=== PATIENT | male | born 1955 | race Caucasian/White ===

== ENCOUNTER 2021-10-28 10:13 | Outpatient (CLI) | payer BC | END 2021-10-28 10:14 | disposition home or self-care (01) | LOC: CSHRAD 10:13 | PROVIDERS: ATTEND Physician Assistant | DX: R13.10 Dysphagia, unspecified (principal); K22.5 Diverticulum of esophagus, acquired | CPT/HCPCS: 74220 ==

== ENCOUNTER 2022-01-18 11:38 | Outpatient (CLI) | payer BC, MEDICARE ==
[2022-01-18 13:11] LABS: Anion Gap 13 mmol/L (10-20); BUN (Urea Nitrogen) 19 mg/dL (8.4-25.7); Calc. Creatinine Clearance 0 mL/min (70-130); Calcium 9.3 mg/dL (7.8-10.44); Carbon Dioxide 28 mmol/L (23-31); Chloride 107 mmol/L (98-107); Estimated GFR 94; Glucose 93 mg/dL (80-115); Potassium 4.2 mmol/L (3.5-5.1); Sodium 144 mmol/L (136-145)
== END 2022-01-18 11:39 | disposition home or self-care (01) ==
LOC: CSHLAB 11:38
PROVIDERS: ATTEND Otolaryngology Plastic Surgery within the Head & Neck
DX: Z01.818 Encounter for other preprocedural examination (principal); Z20.822 Contact with and (suspected) exposure to COVID-19
CPT/HCPCS: 80048; 85014; 85018; 87811; 93005; 93010

== ENCOUNTER 2022-01-23 05:27 | Inpatient (IN) | payer BC, MEDICARE ==
[2022-01-23] MEDS ORDERED: EPINEPHrine 1 MG/ML AMP ONE ×2 (06:37→06:38)
[2022-01-23] MEDS ORDERED: Lidocaine 1% w/Epinephrine 1:100K 20 ML VIAL ONE (06:38)
[2022-01-23] MEDS ORDERED: Ondansetron PF 4 MG/2 ML Vial ONE (06:40)
[2022-01-23] MEDS ORDERED: Dexamethasone 20 MG/5 ML VIAL ONE (06:40)
[2022-01-23] MEDS ORDERED: Fentanyl 250 MCG/5 ML VIAL ONE (06:40)
[2022-01-23] MEDS ORDERED: Lidocaine 1% PF 5 ML VIAL ONE (06:40)
[2022-01-23] MEDS ORDERED: Rocuronium Bromide 10 MG/ML (10ML VIAL) ONE (06:40)
[2022-01-23] MEDS ORDERED: Glycopyrrolate 0.2 MG/ML 5 ML SYRINGE ONE (06:40)
[2022-01-23] MEDS ORDERED: Midazolam HCl 2 mg/2 ml Vial ONE (06:40)
[2022-01-23] MEDS ORDERED: PROPOFOL 20 ML ONE ×2 (06:40→08:33)
[2022-01-23] MEDS ORDERED: Lidocaine 4% Topical Sol 50 ML BOT ONE (06:42)
[2022-01-23] MEDS ORDERED: CEFAZOLIN 1 GM VIAL ONE (07:10)
[2022-01-23] MEDS ORDERED: ePHEDrine Sulfate 50 MG/10 ML VIAL ONE (08:01)
[2022-01-23] MEDS ORDERED: Ondansetron PF 4 MG/2 ML Vial IVP PRN (09:26)
[2022-01-23] MEDS ORDERED: Acetaminophen 650 MG/20.3 ML UDCUP PER TUBE PRN (10:55)
[2022-01-23] MEDS: D5 0.9% NS w/ 20 mEq KCl 1,000 ML IV SCH ×2 (10:55→21:30)
[2022-01-23] MEDS: Morphine 4 MG/ML VIAL SLOW IVP PRN ×2 (13:45→17:18)
[2022-01-23] MEDS ORDERED: Artificial Tear Sol 15 ML BOT EA EYE PRN (16:34)
[2022-01-23] MEDS: CEFAZOLIN 1 GM in Sodium Chloride 0.9% 100 ML IVPB SCH (16:38)
[2022-01-23] MEDS ORDERED: prednisoLONE 1% Ophth Susp 5 ml Bottle R EYE SCH (17:00)
[2022-01-23] MEDS: Famotidine/PF 20 mg/2ml Vial SLOW IVP SCH (20:13)
[2022-01-23] MEDS: prednisoLONE 1% Ophth Susp 5 ml Bottle R EYE SCH (20:14)
[2022-01-24] MEDS: CEFAZOLIN 1 GM in Sodium Chloride 0.9% 100 ML IVPB SCH ×3 (00:52→16:03)
[2022-01-24] MEDS: D5 0.9% NS w/ 20 mEq KCl 1,000 ML IV SCH ×3 (06:28→23:45)
[2022-01-24] MEDS: Famotidine/PF 20 mg/2ml Vial SLOW IVP SCH ×2 (08:10→21:12)
[2022-01-24] MEDS: prednisoLONE 1% Ophth Susp 5 ml Bottle R EYE SCH ×3 (08:11→21:13)
[2022-01-24] MEDS: Morphine 4 MG/ML VIAL SLOW IVP PRN (14:22)
[2022-01-25] MEDS: CEFAZOLIN 1 GM in Sodium Chloride 0.9% 100 ML IVPB SCH ×2 (00:05→09:03)
[2022-01-25] MEDS: Morphine 4 MG/ML VIAL SLOW IVP PRN (00:06)
[2022-01-25] MEDS: Famotidine/PF 20 mg/2ml Vial SLOW IVP SCH (08:17)
[2022-01-25] MEDS: prednisoLONE 1% Ophth Susp 5 ml Bottle R EYE SCH (08:17)
[2022-01-25 08:39] VITALS: BMI 25.7
[2022-01-25] MEDS: D5 0.9% NS w/ 20 mEq KCl 1,000 ML IV SCH (08:42)
[2022-01-25 12:43] VITALS: BP 135/75; TEMP 97.4
== END 2022-01-25 14:00 | disposition home or self-care (01) | DRG 327 ==
LOC: CSHSDC 05:27 → CSHICU 10:48
PROVIDERS: ADMIT Otolaryngology Plastic Surgery within the Head & Neck; ATTEND Otolaryngology Plastic Surgery within the Head & Neck
PROC: 0K840ZZ Division of Tongue, Palate, Pharynx Muscle, Open Approach (ICD-10-PCS; principal; 2022-01-23)
PROC: 0DJ08ZZ Inspection of Upper Intestinal Tract, Via Natural or Artificial Opening Endoscopic (ICD-10-PCS; 2022-01-23)
DX: K22.5 Diverticulum of esophagus, acquired (principal); J98.11 Atelectasis; R13.10 Dysphagia, unspecified; R58 Hemorrhage, not elsewhere classified
CPT/HCPCS: 36416; 71045; 74220; 88305; A4649; C1713; J0171; J0690; J1100; J2250; J2270; J2405; J2704; J3010; J3480; J3490; S0028